=== PATIENT | male | born 1985 | race Caucasian/White ===

== ENCOUNTER 2021-07-26 22:53 | Inpatient (IN) | payer MEDICAID, SELFPAY ==
[2021-07-26 23:02] VITALS: BP 118/79; PULSE 81; RESP 18; TEMP 36.4; O2SAT 97
[2021-07-26 23:06] VITALS: BMI 28.5
[2021-07-27 06:00] VITALS: BP 106/73; PULSE 81; RESP 20; TEMP 36.9; O2SAT 95
[2021-07-27] MEDS: nicotine 2 mg Gum BUCCAL ×6 (08:07→19:25)
[2021-07-27] MEDS: hyDROXYzine 25 mg Capsule 50 MG PO ×2 (09:15→16:47)
--- NOTE | 2021-07-27 10:12 | W.PM.NPUH&PS ---
Providers/Chief Complaint Admitting Physician: Venkata Bello MD Chief Complaint: si HPI NPU History of Present Illness Derrick Cage is a 36 year old male Admitted from [facility] with the following report: Derrick is a 36-year-old male patient who presents with a chief complaint of suicidal ideation.? He states that he has a plan to slit his radial artery and bleed out.? He states that he is also having testicular pain.? He states that he hit them when he sat down on the couch.? He states that he has a hydrocele that is supposed to have surgery on it.? He states that he left the inpatient psychiatric still yesterday because he felt like he was going to hit people. He was admitted for definitive treatment of these issues. He said that he has been to several different hospitals hospitals recently. He says that he thinks that that has happened because they want him to meet a lot of people. He says that he has been diagnosed with schizophrenia, bipolar 1 and PTSD. He said he has been in residential for approximately 14 years. He says that he has seen many things happened and was present. He says that he has never been attacked or harmed in residential. He says he always hears voices. He also sees things. Mostly he sees cartoon characters or gargoyles. He has times when he is up and does not need sleep for weeks at a time. He says during those times he sometimes thinks he is God or Archangel. He also has long periods of times when he is depressed. He says that his hospitalizations have generally been because of depression. During those times he is down and has low energy and no motivation. He thinks that there is a dark force holding him down but he does not feel that he is God or an Archangel during those times. He says that he currently takes lithium, Depakote, Invega, Seroquel and trazodone and Tylenol with some caffeine. He does not know the doses of any of those medications. He said that he thinks that they are all as needed. He says that he has been taking them regularly. His medications are at home and he will call his mother and find out what the doses are. Meds NPU Allergies Allergy/AdvReac Type Severity Reaction Status Date / Time ibuprofen [From Motrin] Allergy Severe ALGY-Anaphy Verified 01/25/22 02:05 laxis Penicillins Allergy Severe ALGY-Hives Verified 07/27/21 02:06 Sulfa (Sulfonamide Allergy Severe ALGY-Hives Verified 07/27/21 02:06 Antibiotics) Mental Status Exam MSE Comments: This is a 36-year-old appropriate weight black male who appears approximately his stated age and is in no acute distress. He is dressed in hospital scrubs and fairly well groomed. He was found standing in the day room wiping down the holden and talking to himself. psychomotor activity increased mildly Speech is at a regular rate and rhythm, normal volume, good articulation, mildly pressured. No derailment or clanging associations Alert, oriented X3 Attention and concentration appear to be normal. Memory is intact Mood is good. Affect is euthymic. Thought process is logical and goal-directed. Thought content: Denies auditory and visual hallucinations. No delusions or paranoia are noted. No current suicidal ideation, and no homicidal ideation. Fund of knowledge is appears to be average. Insight and judgment appear to be only fair. Impulse control is only fair. Vitals/I&O/Wt Last Vital Signs Temp 98.5 F 07/27/21 06:00 Pulse 81 07/27/21 06:00 Resp 20 H 07/27/21 06:00 BP 106/73 07/27/21 06:00 Pulse Ox 95 07/27/21 06:00 Weight last 48 hrs Weight 92.986 kg A&P Assessment and plan (1) Schizoaffective disorder, bipolar type: Status: Acute Plan This is a 36-year-old black male who reports prior diagnosis of bipolar 1 disorder, schizophrenia and PTSD. He denies any traumatic experiences that would cause PTSD. His description of his symptoms seem more like schizoaffective disorder since he always hears voices and has long periods of eileen and depression. Plan: 1. We will start back on lithium 450 twice a day, Invega 6 mg every morning, Depakote 1000 mg twice a day, Seroquel 100 mg at bedtime. These might be low from what he describes but he will get his doses from his mother. 2. Continue every 15 minute checks for safety. 3. Encourage individual, group and milieu therapies. 4. Encourage sober living treatment after discharge at the highest level of care to which he is willing to commit. 5. We will monitor for safety for himself in the community prior to discharge. Involuntary Hold Information 96 Hour Hold: 96 Hour Involuntary Admission: Yes 96 Hour Hold Ending Date: 07/30/21 96 Hour Hold Ending Time: 23:10 Attestations NPU Medical Necessity Statement*: Inpatient hospitalization is medically necessary and the clinically appropriate intervention at this time. We will initiate medications and make changes as indicated. He will be in the hospital for over 2 midnights. 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
[2021-07-27] MEDS: paliperidone ER 6 mg Tablet PO (11:54)
[2021-07-27] MEDS: lithium carbonate ER 450 mg Tablet PO ×2 (11:54→20:49)
[2021-07-27] MEDS: divalproex DR 500 mg Tablet PO ×2 (11:54→20:49)
[2021-07-27 14:00] VITALS: BP 106/73; PULSE 81; RESP 20; TEMP 36.9; O2SAT 95
[2021-07-27] MEDS: blistex lip oint 7 gm Tube 1 APPLIC TOPICAL (15:33)
[2021-07-27] MEDS: OLANZapine 5 mg ODT PO ×2 (16:47→20:44)
[2021-07-27] MEDS: haloperidol 5 mg Tablet PO (17:12)
[2021-07-27] MEDS: cetylpyridinium Lozenge 1 EACH MUCOUS MEM ×3 (18:34→20:44)
[2021-07-27] MEDS: quetiapine 100 mg Tablet PO (20:44)
[2021-07-27 21:02] VITALS: BP 138/90; PULSE 105; RESP 17; TEMP 36.6; O2SAT 99
[2021-07-28 06:00] VITALS: BP 92/54; PULSE 75; RESP 18; TEMP 36.7; O2SAT 95
[2021-07-28] MEDS: nicotine 2 mg Gum BUCCAL ×2 (07:48→09:07)
[2021-07-28] MEDS: divalproex DR 500 mg Tablet PO ×2 (09:07→20:13)
[2021-07-28] MEDS: cetylpyridinium Lozenge 1 EACH MUCOUS MEM (09:07)
[2021-07-28] MEDS: lithium carbonate ER 450 mg Tablet PO ×2 (09:07→20:13)
[2021-07-28] MEDS: paliperidone ER 6 mg Tablet PO (09:07)
--- NOTE | 2021-07-28 09:08 | P.NPUPN_ITS ---
Subjective NPU Subjective: Interval history: He continues to be manic. He says I look like a gargoyle to him. He has not been able to get the list of medications from his mother. the nurses will call his pharmacy. Mental Status Exam MSE Comments: This is a overweight tanned skin male with adequate dress grooming and eye contact.? No abnormal movements except for psychomotor agitation.? Cooperative with exam in no acute distress.? Speech was normal rate and volume.? Mood described as good affect much calmer.? Thought process organized.? Thought content: Patient denied suicidal or homicidal ideation, there were no delusions reported or noted, he denied auditory visual hallucinations and no longer appeared to be attending to internal stimuli Attention and concentration were intact and memory appeared reliable at times and unreliable at others.? But none were formally tested.? He is alert and oriented x3.? Insight and judgment are improving, impulse control is improving. Cognition: Patient Appearance: Appropriate Level of Consciousness: Awake, Alert, Appropriate and Follows Commands Ability to Follow Directions: Excellent Patient Orientation (long list): Person, Place, Time, Name, Birthday and Month Comprehension Ability: No Impairment Hallucination Type: None Delusion Description: Not Present Thought Process: Appropriate Affect: Affect Description: Appropriate and Calm Behavior: Patient Behavior: Appropriate and Cooperative Speech Pattern: Appropriate and Clear Vitals/I&O/Wt Last Vital Signs Temp 97.8 F 07/31/21 08:27 Pulse 100 07/31/21 08:27 Resp 15 07/31/21 08:27 BP 115/67 07/31/21 08:27 Pulse Ox 97 07/31/21 08:27 Data NPU : 07/28/21 12:30 07/28/21 12:30 A&P Assessment and plan (1) Schizoaffective disorder, bipolar type: Status: Acute (2) Hydrocele: Status: Acute Plan Plan This is a 36-year-old black male who reports prior diagnosis of bipolar 1 disorder, schizophrenia and PTSD.? He denies any traumatic experiences that would cause PTSD.? His description of his symptoms seem more like schizoaffective disorder since he always hears voices and has long periods of eileen and depression. Plan: 1.? We will start back on lithium 450 twice a day, Invega 6 mg every morning, Depakote 1000 mg twice a day, Seroquel 100 mg at bedtime.? These might be low from what he describes but he will get his doses from his mother. 2.? Continue every 15 minute checks for safety. 3.? Encourage individual, group and milieu therapies. 4.? Encourage sober living treatment after discharge at the highest level of care to which he is willing to commit. 5.? Filed 21-day hold but will likely not utilize. 6. Appreciate hospitalist input with hydrocele, will follow recommendations. Involuntary Hold Information 96 Hour Hold: 96 Hour Involuntary Admission: Yes 96 Hour Hold Ending Date: 07/30/21 96 Hour Hold Ending Time: 23:10 Attestations NPU Medical Necessity Statement*: Inpatient hospitalization is medically necessary and the clinically appropriate intervention at this time.? We will initiate medications and make changes as indicated.?? 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
--- NOTE | 2021-07-28 12:17 | P.CONIM_ITS ---
Providers/Reason For Consult Consulting Physician/Specialty*: Valerio Fam MD, hospitalist Reason for Consult*: Right groin swelling Requesting Physician: Dr. Bello Attending Physician: Venkata Bello MD History of Present Illness History of Present Illness Derrick Cage is a 36 year old male who I am asked to see in consultation secondary to right groin swelling. Patient reports it has been there for quite some time, and is being followed at [facility]. He states he was going to have surgery for this sometime, with urology but he was transferred and therefore the surgery was canceled. He reports some pain in the right groin area. He states he has difficulty urinating and has not urinated in 2 days. No fever. Review of Systems General: Reports: 10 or more systems reviewed and unremarkable except in HPI and below Const: Denies: fever(s) Eyes: Denies: change in vision ENMT: Denies: throat pain Card: Denies: chest pain Resp: Denies: dyspnea GI: Denies: abdominal pain : Reports: difficulty urinating, testicular mass and scrotal swelling Musc: Denies: neck pain Skin/Breast: Denies: rash Neuro: Denies: headache(s) Psych: Denies: anxiety Endo: Denies: polyuria Lucian/Lymph: Denies: easy bruising All/Imm: Denies: urticaria Medications/Allergies Allergies Allergy/AdvReac Type Severity Reaction Status Date / Time ibuprofen [From Motrin] Allergy Severe ALGY-Anaphy Verified 07/27/21 02:05 laxis Penicillins Allergy Severe ALGY-Hives Verified 07/27/21 02:06 Sulfa (Sulfonamide Allergy Severe ALGY-Hives Verified 07/27/21 02:06 Antibiotics) Current Medications Generic Name Dose Route Start Last Admin Trade Name Freq PRN Reason Stop Dose Admin Benzocaine 1 each 07/27/21 16:51 07/28/21 09:07 Cetylpyridinium Lozenge MUCOUS MEM 1 each Q2H PRN Administration SORE THROAT Camphor/Menthol/Phenol 1 applic 07/26/21 23:01 07/27/21 15:33 Blistex Lip Oint 7 Gm Tube TOPICAL 1 unit Q1H PRN Administration DRYNESS Divalproex Sodium 500 mg 07/27/21 11:00 07/28/21 09:[address] 500 Mg Tablet PO 500 mg BID@0900,2100 ROHAN Administration Haloperidol 5 mg 07/26/21 23:01 07/27/21 17:12 Haloperidol 5 Mg Tablet PO 5 mg Q4H PRN Administration AGITATION Hydroxyzine Pamoate 50 mg 07/26/21 23:01 07/27/21 16:47 Hydroxyzine 25 Mg Capsule PO 50 mg Q6H PRN Administration ANXIETY [place] Carbonate 450 mg 07/27/21 10:30 07/28/21 09:07 [place] Carbonate Er 450 Mg Tablet PO 450 mg BID@0900,2100 ROHAN Administration Nicotine Polacrilex 2 mg 07/26/21 23:01 07/28/21 09:07 Nicotine 2 Mg Gum BUCCAL 2 mg Q2H PRN Administration NICOTINE WITHDRAWAL Olanzapine 5 mg 07/26/21 23:01 07/27/21 20:44 Olanzapine 5 Mg Odt PO 5 mg Q4H PRN Administration Agitation/Psychosis Paliperidone 6 mg 07/27/21 10:15 07/28/21 09:07 Paliperidone Er 6 Mg Tablet PO 6 mg DAILY ROHAN Administration Quetiapine Fumarate 100 mg 07/27/21 21:00 07/27/21 20:44 Quetiapine 100 Mg Tablet PO 100 mg BEDTIME ORHAN Administration PFSH Acute PFSH: Social History (Updated 07/28/21 @ 12:31 by Valerio Fam MD) Smoking and tobacco status: current every day smoker Alcohol intake: current Substance/Drug Use: current Other PFSH information: Denies any surgeries, medical problems, family history Vitals/I&O/Wt Last Vital Signs Temp 98.0 F 07/28/21 06:00 Pulse 75 07/28/21 06:00 Resp 18 07/28/21 06:00 BP 92/54 07/28/21 06:00 Pulse Ox 95 07/28/21 06:00 Weight last 48 hrs Weight 92.986 kg Physical Exam Narrative: EXAM NARRATIVE: General exam is a male, no apparent distress HEENT: Normal Neck is supple Cardiovascular regular rate and rhythm without murmur Lungs clear Abdomen is soft exam demonstrates firm right testicular sac consistent with hydrocele but cannot rule out epididymitis. Somewhat tender to palpation overlying the epididymis. Extremities no cyanosis clubbing or edema, cap refill brisk Skin no rash Neuro no obvious focal deficits. Data Other Labs: Laboratory at outside hospital on the demonstrated white blood cell of 11.5, hemoglobin 13.5, platelet count 174. Sodium 140, potassium 3.8, chloride 105, CO2 26, BUN 24, creatinine 0.8. LFTs normal. Glucose 107. Ultrasound done on July 24 demonstrated large right hydrocele with no torsion. Right epididymis was not visualized. Urinalysis on July 24 demonstrated a urine with 0-2 red blood cells and 0-5 white blood cells Covid - July 24 A&P Assessment and plan (1) Hydrocele: Significant for right hydrocele, cannot rule out epididymitis. Previous ultrasound could not define epididymis. Ceftriaxone 500 mg IM Doxycycline 100 mg twice daily Secondary to complaints of no urination, patient reports in 2 days we will bladder scan, check urinalysis, CBC, CMP Check urine for GC and chlamydia If any concerns on above testing consider urology evaluation Repeat testicular ultrasound here. Status: Acute Plan Thank you for this consultation Consult Attestations Medical Necessity Statement: As per primary Time Spent in Patient Care: Greater than 35 minutes spent in consultation care. 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
[2021-07-28 13:01] LABS: Basophils # 0.1 10^3/uL (0.0-0.1); Basophils % 0.7 %; Eosinophils # 0.7 10^3/uL (0.0-0.8); Eosinophils % 7.7 %; Hematocrit 43.6 % (42.0-52.0); Hemoglobin 14.6 g/dL (11.7-16.6); Lymphocytes # 2.7 10^3/uL (0.8-4.8); Lymphocytes % 30.7 %; Mean Corpuscular HGB Conc 33.5 g/dL (30.0-36.0); Mean Corpuscular Hemoglobin 30.4 pg (28.0-34.0); Mean Corpuscular Volume 90.8 fl (80-94); Mean Platelet Volume 9.3 fL (7.4-10.4); Monocytes # 0.6 10^3/uL (0.2-0.9); Monocytes % 6.9 %; Neutrophils # 4.67 10^3/uL (1.8-7.7); Neutrophils % 53.7 %; Nucleated Red Blood Cells % 0 %; Platelet Count 215 10^3/cmm (130-400); Red Cell Distribution Width 12.9 % (12.1-15.1); White Blood Count 8.7 10^3/uL (4.0-10.0)
[2021-07-28 13:15] LABS: Alanine Aminotransferase 44 U/L (0-41); Albumin Level 4.3 g/dL (3.5-5.2); Alkaline Phosphatase 70 IU/L (40-130); Anion Gap 17.5 (5-19); Aspartate Amino Transferase 35 U/L (0-40); Blood Urea Nitrogen 20 mg/dL (6-20); Calcium 9.8 mg/dL (8.5-10.5); Carbon Dioxide 23 mmol/L (22-29); Chloride 99 mmol/L (98-107); Globulin 3.1 g/dL (1.3-4.6); Glomerular Filtration Rate 127.6 mL/min (90-130); Glucose 90 mg/dL (65-115); Osmolality Calculated 282 mOsm/kg (285-295); Potassium 4.5 mmol/L (3.5-5.1); Sodium 135 mmol/L (136-145); Total Bilirubin 0.2 mg/dL (0.15-1.2); Total Protein 7.4 g/dL (6.6-8.7)
[2021-07-28 13:38] VITALS: BP 117/71; PULSE 67; RESP 16; TEMP 36.6; O2SAT 97
[2021-07-28 15:58] LABS: Bilirubin Urine Neg (Negative); Blood Urine Neg (Negative); Glucose Urine UA Norm (Normal); Ketones Urine Negative (Negative); Leukocyte Esterase Urine Negative (Negative); Nitrate Urine Negative (Negative); Protein Urine Neg (Negative); Specific Gravity, Urine 1.005 (1.005-1.030); Urine Appearance Clear (CLEAR); Urine Color Straw (Yellow); Urobilinogen Urine Norm (Negative); pH Urine 7 (5-7)
[2021-07-28 16:17] LABS: Add Urine Culture? No; Bacteria Urine TRACE /hpf; Squamous Epithelial Cell Urine RARE /hpf (0-5)
[2021-07-28] MEDS: quetiapine 100 mg Tablet PO (20:13)
[2021-07-28 21:09] VITALS: BP 114/72; PULSE 89; RESP 17; TEMP 36.8; O2SAT 93
--- NOTE | 2021-07-29 | US_ITS ---
WS: [id number] URINARY BLADDER ULTRASOUND HISTORY: Hasn't urinated in 48hrs. COMPARISON: None available. Patient voided just prior to this examination. Urinary bladder is minimally distended. No intraluminal filling defect. No free fluid adjacent to the urinary bladder. Bladder Wall Thickness: 0.3 cm. Bladder Prevoid: 3.4 cm x 3.5 cm x 6.3 cm. Prevoid volume: 39 ml. Patient does not have an urge to void at this time. The urinary bladder is moderately distended. Pros wilson gland is enlarged encroaching into the posterior bladder. Prostate measures 3.9 x 4.3 x 2.6 cm. US/US bladder [id number] IMPRESSION: 1. Mild diffuse thickening of the bladder wall is probably due to only moderat e distention. 2. Patient was unable to void. 3. Prostate gland enlargement.
[2021-07-29 06:00] VITALS: BP 121/76; PULSE 95; RESP 20; TEMP 36.5; O2SAT 99
[2021-07-29] MEDS: nicotine 2 mg Gum BUCCAL ×5 (07:16→20:18)
[2021-07-29] MEDS: divalproex DR 500 mg Tablet PO ×2 (07:54→20:18)
[2021-07-29] MEDS: paliperidone ER 6 mg Tablet PO (07:54)
[2021-07-29] MEDS: doxycycline 100 mg Tablet PO ×2 (07:54→17:50)
[2021-07-29] MEDS: cetylpyridinium Lozenge 1 EACH MUCOUS MEM ×3 (07:54→16:04)
[2021-07-29] MEDS: nicotine 21 mg Patch 1 PATCH TRANSDERMA (08:25)
[2021-07-29] MEDS: lithium carbonate ER 450 mg Tablet PO ×2 (08:35→20:18)
--- NOTE | 2021-07-29 10:19 | P.PN_ITS ---
Subjective Subjective: Interval history: Derrick reports it is about the same. Some tenderness right scrotal area but no different from the last several days. Medications: Reviewed: Yes Vitals/I&O/Wt Last Vital Signs Temp 97.7 F 07/29/21 06:00 Pulse 95 07/29/21 06:00 Resp 20 H 07/29/21 06:00 BP 121/76 07/29/21 06:00 Pulse Ox 99 07/29/21 06:00 07/28/21 07/29/21 07/29/21 22:59 06:59 14:59 Intake Total 3.6 / 3.6 Balance 3.6 / 3.6 Physical Exam Narrative: EXAM NARRATIVE: General exam no distress Neck supple Cardiovascular regular rate and rhythm Lungs clear Abdomen soft Extremities no cyanosis clubbing or edema right hydrocele. This is unchanged from yesterday. Subjective tenderness to palpation. Data : 07/28/21 12:30 07/28/21 12:30 A&P Assessment and plan (1) Hydrocele: Significant for right hydrocele, cannot rule out epididymitis. Previous ultrasound could not define epididymis. Ultrasound here shows simple hydrocele He received ceftriaxone yesterday Continue doxycycline. Await GC chlamydia Urinalysis and laboratory unrevealing At this point it is recommended he have outpatient evaluation by urology for potential repair in the future. No need for any repair of hydrocele emergently. We will sign off, please call with questions. I will follow-up GC chlamydia. 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
[2021-07-29] MEDS: OLANZapine 5 mg ODT PO ×3 (11:02→19:11)
--- NOTE | 2021-07-29 12:19 | US_ITS ---
WS: [id number] TESTICULAR ULTRASOUND HISTORY: right groin swelling COMPARISON: None available. TECHNIQUE: Real-time and color Doppler imaging or utilized to perform a testicular ultrasound. Right testicle: 5.7 cm x 3.4 cm x 2.7 cm. Normal size RIGHT testicle and normal vascularity. There is mild difficulty obtaining flow within the testicle due to the large hydrocele displacing the testicle posteriorly. Normal color Doppler is present throughout. Systolic and diastolic velocities are both present. Very large simple hydrocele displacing the testicle. Right epididymis: Not visualized. Small RIGHT varicocele. Left testicle: 5.0 cm x 3.6 cm x 2.8 cm. Normal size and echogenicity. No mass or torsion. Normal color Doppler is present throughout. Systolic and diastolic velocities are both present. No significant hydrocele. Left epididymis: Normal epididymis with no increased vascularity. Small LEFT varicocele. US/US scrotum [id number] IMPRESSION: 1. No testicular mass or torsion. 2. Very large simple RIGHT hydrocele. 3. Small bilateral varicoceles.
--- NOTE | 2021-07-29 13:12 | PC.NURSE ---
andra patch removed @ 1300, pt had been chewing on it
[2021-07-29] MEDS: hyDROXYzine 25 mg Capsule 50 MG PO ×2 (13:32→19:11)
[2021-07-29 14:00] VITALS: BP 134/91; PULSE 103; RESP 18; O2SAT 100
--- NOTE | 2021-07-29 14:02 | P.NPUPN_ITS ---
Subjective NPU Subjective: Interval history: Patient presents today reporting that he feels ready to go home today that he wants to go be with his family and continue the good work that he does in his life. He held a fairly reasonable and intellectual conversation but then spent the rest of the time while he was in view walking singing songs, talking to himself in a bizarre manner. He demonstrated limited insight into personal space. His behaviors were fairly odd and we discussed the fact that he is on a 96-hour hold. We discussed the possibility of a 96-hour hold. Reviewed medication and he is on sufficient amounts of medication but question time that he has been on said meds. Mental Status Exam MSE Comments: This is a overweight tanned skin male with adequate dress grooming and eye contact. No abnormal movements except for psychomotor agitation. Cooperative with exam in no acute distress. Speech was normal rate and volume. Mood described as good affect euphoric. Thought process organized. Thought content: Patient denied suicidal or homicidal ideation, there were no delusions reported but he appeared to have some grandiose delusions, he denied auditory visual hallucinations but then said that they were a gift when he did have them. Attention and concentration were intact and memory appeared reliable at times and unreliable at others. But none were formally tested. He is alert and oriented x3. Insight and judgment are impaired, impulse control is limited. Vitals/I&O/Wt Last Vital Signs Temp 97.7 F 07/29/21 06:00 Pulse 95 07/29/21 06:00 Resp 20 H 07/29/21 06:00 BP 121/76 07/29/21 06:00 Pulse Ox 99 07/29/21 06:00 Data NPU : 07/28/21 12:30 07/28/21 12:30 Micro: Microbiology 07/28/21 15:18 Chlamydia trachomatis ([facility]) - Final Urine Random Neisseria gonorrhoeae ([facility]) - Final Microbiology 07/28/21 15:18 Urine Random Chlamydia trachomatis ([facility]) - Final 07/28/21 15:18 Urine Random Neisseria gonorrhoeae ([facility]) - Final A&P Assessment and plan (1) Hydrocele: Status: Acute (2) Schizoaffective disorder, bipolar type: Status: Acute Plan Plan This is a 36-year-old black male who reports prior diagnosis of bipolar 1 disorder, schizophrenia and PTSD.? He denies any traumatic experiences that would cause PTSD.? His description of his symptoms seem more like nena izoaffective disorder since he always hears voices and has long periods of eileen and depression. Plan: 1.? We will start back on lithium 450 twice a day, Invega 6 mg every morning, Depakote 1000 mg twice a day, Seroquel 100 mg at bedtime.? These might be low from what he describes but he will get his doses from his mother. 2.? Continue every 15 minute checks for safety. 3.? Encourage individual, group and milieu therapies. 4.? Encourage sober living treatment after discharge at the highest level of care to which he is willing to commit. 5.? We will consider putting on a 21-day hold versus discharging at the end of his 96-hour hold tomorrow. Involuntary Hold Information 96 Hour Hold: 96 Hour Involuntary Admission: Yes 96 Hour Hold Ending Date: 07/30/21 96 Hour Hold Ending Time: 23:10 Attestations NPU Medical Necessity Statement*: Inpatient hospitalization is medically necessary and the clinically appropriate intervention at this time.? We will initiate medications and make changes as indicated.? 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
[2021-07-29] MEDS: quetiapine 100 mg Tablet PO (20:18)
[2021-07-29 21:08] VITALS: BP 144/95; PULSE 100; RESP 20; TEMP 36.7; O2SAT 100
[2021-07-29] MEDS: acetaminophen 325 mg Tablet 650 MG PO (21:35)
[2021-07-29] MEDS: haloperidol 5 mg Tablet PO (21:39)
[2021-07-30 05:41] VITALS: BP 103/64; PULSE 61; RESP 17; TEMP 36.9; O2SAT 97
[2021-07-30] MEDS: nicotine 2 mg Gum BUCCAL ×4 (08:01→16:49)
[2021-07-30] MEDS: lithium carbonate ER 450 mg Tablet PO ×2 (08:59→20:23)
[2021-07-30] MEDS: doxycycline 100 mg Tablet PO ×2 (08:59→17:30)
[2021-07-30] MEDS: cetylpyridinium Lozenge 1 EACH MUCOUS MEM ×2 (08:59→12:16)
[2021-07-30] MEDS: divalproex DR 500 mg Tablet PO ×2 (09:00→20:23)
[2021-07-30] MEDS: paliperidone ER 6 mg Tablet PO (09:00)
[2021-07-30] MEDS: hyDROXYzine 25 mg Capsule 50 MG PO (11:25)
--- NOTE | 2021-07-30 13:01 | PC.NURSE ---
PRN Patient c/o anxiety at 1125. Took PRN Vistaril to good effect. Anxiety increased by another patient. Patient moved to separate beck to help with keeping anxiety levels down.
[2021-07-30 13:39] VITALS: BP 93/60; PULSE 95; RESP 17; TEMP 36.5; O2SAT 98
--- NOTE | 2021-07-30 17:01 | W.PM.NPUPNS ---
Subjective NPU Subjective: Interval history: Patient presents today reporting that he is feeling significantly better. He continues to report that he did not have adherence issues with his medications but we discussed the fact that his notable improvement over the last 24 hours is very suggestive that Dr. Bello restarting his medications led to this transformation. We reached out to his mother who had not spoken to him since he had gotten to this hospital. She also endorses a marked improvement since he left several days ago. We discussed the likelihood of assisting him with a ride in the morning given the resources are not available and also to ensure this is clear progress. Discussed the fact that we did file a 21-day hold secondary to it being at the deadline but would work with him and mother to determine whether that is necessary. Mental Status Exam MSE Comments: This is a overweight tanned skin male with adequate dress grooming and eye contact.? No abnormal movements except for psychomotor agitation.? Cooperative with exam in no acute distress.? Speech was normal rate and volume.? Mood described as good affect much calmer.? Thought process organized.? Thought content: Patient denied suicidal or homicidal ideation, there were no delusions reported or noted, he denied auditory visual hallucinations and no longer appeared to be attending to internal stimuli Attention and concentration were intact and memory appeared reliable at times and unreliable at others.? But none were formally tested.? He is alert and oriented x3.? Insight and judgment are improving, impulse control is improving. Vitals/I&O/Wt Last Vital Signs Temp 97.8 F 07/30/21 20:55 Pulse 100 07/30/21 20:55 Resp 15 07/30/21 20:55 BP 115/67 07/30/21 20:55 Pulse Ox 97 07/30/21 20:55 Data NPU : 07/28/21 12:30 07/28/21 12:30 A&P Assessment and plan (1) Schizoaffective disorder, bipolar type: Status: Acute (2) Hydrocele: Status: Acute Plan Plan This is a 36-year-old black male who reports prior diagnosis of bipolar 1 disorder, schizophrenia and PTSD.? He denies any traumatic experiences that would cause PTSD.? His description of his symptoms seem more like schizoaffective disorder since he always hears voices and has long periods of eileen and depression. Plan: 1.? We will start back on lithium 450 twice a day, Invega 6 mg every morning, Depakote 1000 mg twice a day, Seroquel 100 mg at bedtime.? These might be low from what he describes but he will get his doses from his mother. 2.? Continue every 15 minute checks for safety. 3.? Encourage individual, group and milieu therapies. 4.? Encourage sober living treatment after discharge at the highest level of care to which he is willing to commit. 5.? Filed 21-day hold but will likely not utilize. 6. Appreciate hospitalist input with julius, will follow recommendations. Involuntary Hold Information 96 Hour Hold: 96 Hour Involuntary Admission: Yes 96 Hour Hold Ending Date: 07/30/21 96 Hour Hold Ending Time: 23:10 Attestations NPU Medical Necessity Statement*: Inpatient hospitalization is medically necessary and the clinically appropriate intervention at this time.? We will initiate medications and make changes as indicated.?? Likely length of stay is 1-3 days Coding Level of Care Code Acute Pastoral Counselor for [facility] Fwd Diagnoses Schizoaffective disorder, bipolar type F25.0 Julius N43.3
[2021-07-30] MEDS: OLANZapine 5 mg ODT PO (17:30)
[2021-07-30] MEDS: acetaminophen 325 mg Tablet 650 MG PO (18:11)
--- NOTE | 2021-07-30 20:21 | PC.NURSE ---
Patient with hydrocele pain. Voices that he sat down wrong today and felt a pop. Voices pain to be an 8-9. Voided dark yellow urine two hours prior without difficulty. Hospitalist notified.
[2021-07-30] MEDS: quetiapine 100 mg Tablet PO (20:23)
[2021-07-30 20:55] VITALS: BP 115/67; PULSE 100; RESP 15; TEMP 36.6; O2SAT 97
--- NOTE | 2021-07-30 20:59 | PC.NURSE ---
Dr. Lake saw the patient and examined his scrotum. He reports that there could be a microtear. He wants the scrotum to be elevated with a towel and an ice pack for 4-6 hours.
[2021-07-30] MEDS: TRAMadol 50 mg Tablet PO (21:17)
--- NOTE | 2021-07-30 21:25 | PC.NURSE ---
Patient received Tramadol 50mg x1 for a pain of 7 in his right testicle. The scrotum/testicle was elevated with a towel and ice was applied per physicians orders.
--- NOTE | 2021-07-31 05:23 | W.PM.NPUDCS ---
Diagnoses at Discharge Discharge Diagnosis (1) Schizoaffective disorder, bipolar type: Status: Acute (2) Hydrocele: Status: Acute Reason for Visit Reason for Visit: si Brief History: History of Present Illness Derrick Cage is a 36 year old male Admitted from [facility] with the following report: Derrick is a 36-year-old male patient who presents with a chief complaint of suicidal ideation.? He states that he has a plan to slit his radial artery and bleed out.? He states that he is also having testicular pain.? He states that he hit them when he sat down on the couch.? He states that he has a hydrocele that is supposed to have surgery on it.? He states that he left the inpatient psychiatric still yesterday because he felt like he was going to hit people. He was admitted for definitive treatment of these issues.? He said that he has been to several different hospitals hospitals recently.? He says that he thinks that that has happened because they want him to meet a lot of people.? He says that he has been diagnosed with schizophrenia, bipolar 1 and PTSD.? He said he has been in care home for approximately 14 years.? He says that he has seen many things happened and was present.? He says that he has never been attacked or harmed in care home.? He says he always hears voices.? He also sees things.? Mostly he sees cartoon characters or gargoyles.? He has times when he is up and does not need sleep for weeks at a time.? He says during those times he sometimes thinks he is God or Archangel.? He also has long periods of times when he is depressed.? He says that his hospitalizations have generally been because of depression.? During those times he is down and has low energy and no motivation.? He thinks that there is a dark force holding him down but he does not feel that he is God or an Archangel during those times.? He says that he currently takes lithium, Depakote, Invega, Seroquel and trazodone and Tylenol with some caffeine.? He does not know the doses of any of those medications.? He said that he thinks that they are all as needed.? He says that he has been taking them regularly.? His medications are at home and he will call his mother and find out what the doses are. Hospital Course Hospital Course Patient slowly acclimated to the individual, group and milieu therapies provided. He was restarted on his medications which include Depakote, lithium, Invega and Seroquel to assist with sleep. He had marked improvement and was able to work with the treatment team for discharge options. He had some concerns for malingering that arose during the hospitalization. Ultimately he was able to partner with the treatment team for positive outcomes and was able to contract for safety outside of the hospital prior to discharge. At the outside hospital, patient had routine laboratory studies which were within normal limits except for few outliers. Additionally there was a general medical evaluation which was also within normal limits and revealed no new acute processes. Discharge Summary: At the time of discharge, he denied psychosis or lethality. Mood and anxiety were well managed. Patient endorsed a plan to avoid all drugs of abuse and follow-up with the aftercare recommendations of the treatment team. Patient was evaluated and deemed to be absent credible lethality, and had achieved the maximum benefit from an inpatient hospitalization, so was discharged. Involuntary Hold Information 96 Hour Hold: 96 Hour Involuntary Admission: Yes 96 Hour Hold Ending Date: 07/30/21 96 Hour Hold Ending Time: 23:10 Mental Status Exam MSE Comments: This is a overweight tanned skin male with adequate dress grooming and eye contact.? No abnormal movements except for psychomotor agitation.? Cooperative with exam in no acute distress.? Speech was normal rate and volume.? Mood described as good affect congruent.? Thought process organized.? Thought content: Patient denied suicidal or homicidal ideation, there were no delusions reported or noted, he denied auditory visual hallucinations and no longer appeared to be attending to internal stimuli Attention and concentration were intact and memory appeared reliable at times and unreliable at others.? But none were formally tested.? He is alert and oriented x3.? Insight and judgment are improving, impulse control is improving. Discharge Data Studies Completed and Pending: Completed Studies During Hospitalization Category Date Time Status [place] bladder 41488 Routine Ultrasound 07/29/21 Completed US scrotum 79309 Routine Ultrasound 07/29/21 12:19 Completed Radiology Impressions Bladder Ultrasound 07/29/21 00:00 IMPRESSION: 1. Mild diffuse thickening of the bladder wall is probably due to only moderate distention. 2. Patient was unable to void. 3. Prostate gland enlargement. Scrotum Ultrasound 07/29/21 12:19 IMPRESSION: 1. No testicular mass or torsion. 2. Very large simple RIGHT hydrocele. 3. Small bilateral varicoceles. Laboratory Results WBC 8.7 10^3/uL (4.0- 10.0) 07/28/21 12:30 RBC 4.80 10^6/uL (4.1 -5.3) 07/28/21 12:30 Hgb 14.6 g/dL (11.7-1 6.6) 07/28/21 12:30 Hct 43.6 % (42.0-52.0 ) 07/28/21 12:30 MCV 90.8 fl (80-94) 07/28/21 12:30 MCH 30.4 pg (28.0-34. 0) 07/28/21 12:30 MCHC 33.5 g/dL (30.0-3 6.0) 07/28/21 12:30 RDW 12.9 % (12.1-15.1 ) 07/28/21 12:30 Plt Count 215 10^3/cmm (130 -400) 07/28/21 12:30 MPV 9.3 fL (7.4-10.4) 07/28/21 12:30 Neut % (Auto) 53.7 % 07/28/21 12:30 Lymph % (Auto) 30.7 % 07/28/21 12:30 [place] % (Auto) 6.9 % 07/28/21 12:30 Eos % (Auto) 7.7 % 07/28/21 12:30 Baso % (Auto) 0.7 % 07/28/21 12:30 Neut # (Auto) 4.67 10^3/uL (1.8 -7.7) 07/28/21 12:30 Lymph # (Auto) 2.7 10^3/uL (0.8- 4.8) 07/28/21 12:30 [place] # (Auto) 0.6 10^3/uL (0.2- 0.9) 07/28/21 12:30 Eos # (Auto) 0.7 10^3/uL (0.0- 0.8) 07/28/21 12:30 Baso # (Auto) 0.1 10^3/uL (0.0- 0.1) 07/28/21 12:30 Nucleated RBC % (a uto) 0 % 07/28/21 12:30 Nucleated RBCs # 0.0 /100WBC 07/28/21 12:30 Sodium 135 mmol/L (136-1 45) L 07/28/21 12:30 Potassium 4.5 mmol/L (3.5-5 .1) 07/28/21 12:30 Chloride 99 mmol/L (98-107 ) 07/28/21 12:30 Carbon Dioxide 23 mmol/L (22-29) 07/28/21 12:30 Anion Gap 17.5 (5-19) 07/28/21 12:30 BUN 20 mg/dL (6-20) 07/28/21 12:30 Creatinine 0.7 mg/dL (0.7-1. 2) 07/28/21 12:30 GFR Calculation 127.6 mL/min (90- 130) 07/28/21 12:30 Glucose 90 mg/dL (65-115) 07/28/21 12:30 Calculated Osmolal ity 282 mOsm/kg (285- 295) L 07/28/21 12:30 Calcium 9.8 mg/dL (8.5-10 .5) 07/28/21 12:30 Total Bilirubin 0.2 mg/dL (0.15-1 .2) 07/28/21 12:30 AST 35 U/L (0-40) 07/28/21 12:30 ALT 44 U/L (0-41) H 07/28/21 12:30 Alkaline Phosphata se 70 IU/L (40-130) 07/28/21 12:30 Total Protein 7.4 g/dL (6.6-8.7 ) 07/28/21 12:30 Albumin 4.3 g/dL (3.5-5.2 ) 07/28/21 12:30 Globulin 3.1 g/dL (1.3-4.6 ) 07/28/21 12:30 Urine Color Straw (Yellow) 07/28/21 15:18 Urine Appearance Clear (CLEAR) 07/28/21 15:18 Urine pH 7 (5-7) 07/28/21 15:18 Ur Specific Gravit y 1.005 (1.005-1.0 30) 07/28/21 15:18 Urine Protein Neg (Negative) 07/28/21 15:18 Urine Glucose (UA) Norm (Normal) 07/28/21 15:18 Urine Ketones Negative (Negati ve) 07/28/21 15:18 Urine Blood Neg (Negative) 07/28/21 15:18 Urine Nitrate Negative (Negati ve) 07/28/21 15:18 Urine Bilirubin Neg (Negative) 07/28/21 15:18 Urine Urobilinogen Norm mg/dL (Negat jasbir) 07/28/21 15:18 Ur Leukocyte Jyoti ase Negative (Negati ve) 07/28/21 15:18 Urine RBC None /hpf (0-2) 07/28/21 15:18 Urine WBC None /hpf (0-5) 07/28/21 15:18 Ur Squamous Epith Cells Rare /hpf (0-5) 07/28/21 15:18 Amorphous Sediment Not Reportable 07/28/21 15:18 Urine Bacteria Trace /hpf (NONE) 07/28/21 15:18 Vitals: Last Vital Signs Temp 97.8 F 07/30/21 20:55 Pulse 100 07/30/21 20:55 Resp 15 07/30/21 20:55 BP 115/67 07/30/21 20:55 Pulse Ox 97 07/30/21 20:55 Discharge Plan Discharge Patient Disposition: Home Condition: Stable Prescriptions: New divalproex 500 mg Tablet,Delayed Release (Dr/Ec) 500 mg PO BID@0900,2100 30 Days Qty: 60 1RF quetiapine 100 mg Tablet 100 mg PO BEDTIME 30 Days Qty: 30 1RF lithium carbonate 450 mg Tablet Extended Release 450 mg PO BID@0900,2100 30 Days Qty: 60 1RF hydroxyzine pamoate 25 mg Capsule 50 mg PO Q6H PRN (Reason: Anxiety) 30 Days Qty: 120 1RF paliperidone 6 mg Tablet Extended Release 24hr 6 mg PO DAILY 30 Days Qty: 30 1RF doxycycline monohydrate 100 mg Tablet 100 mg PO BID 6 Days Qty: 12 0RF No Action No Known Home Medications 0RF Discharge Orders: Discharge Order (Routine); Ordered 07/31/21 Ordered By: Leif Aburto Referrals: [facility] [Other] - 7-10 days (Walk-in for intial assessment) [facility] [Other] - 08/05/21 8:30 am (Appointment is 0900 but arrive 0830 to complete paperwork) Discharge Diet: Regular Discharge Activity: Limit activity as instructed Patient Instructions: Opioid Safety Discharge Attestations NPU Time Spent in Discharge Care*: less than 30 min Specific Discharge Activities: Specific discharge activities: educating patient, discussing with pcp/other providers, discussing with casework supervisor/social workers/dc planners, documenting/other paperwork and evaluating patient/reviewing data Coding [facility] Diagnoses Schizoaffective disorder, bipolar type F25.0 Hydrocele N43.3
[2021-07-31 06:00] VITALS: BP 109/63; PULSE 84; RESP 16; TEMP 36.7; O2SAT 95
[2021-07-31 08:27] VITALS: BP 115/67; PULSE 100; RESP 15; TEMP 36.6; O2SAT 97
[2021-07-31] MEDS: divalproex DR 500 mg Tablet PO (09:41)
[2021-07-31] MEDS: lithium carbonate ER 450 mg Tablet PO (09:41)
[2021-07-31] MEDS: nicotine 2 mg Gum BUCCAL (09:41)
[2021-07-31] MEDS: doxycycline 100 mg Tablet PO (09:41)
[2021-07-31] MEDS: paliperidone ER 6 mg Tablet PO (10:34)
[2021-07-31] MEDS: hyDROXYzine 25 mg Capsule 50 MG PO (11:19)
[2021-07-31] MEDS: OLANZapine 5 mg ODT PO (11:19)
== END 2021-07-31 13:01 | disposition home or self-care (01) | DRG 885 ==
PROVIDERS: Internal Medicine; Admitting Provider Psychiatry & Neurology Psychiatry; Visit Provider Internal Medicine
DX: F25.0 Schizoaffective disorder, bipolar type (principal); R45.851 Suicidal ideations; N43.3 Hydrocele, unspecified; F43.10 Post-traumatic stress disorder, unspecified; F17.210 Nicotine dependence, cigarettes, uncomplicated
CPT/HCPCS: 36415; 76857; 76870; 80053; 81001; 85025; 87491; 87591; 97150; 97165; J0696